=== PATIENT | female | born 1995 | race Caucasian/White ===

== ENCOUNTER 2017-04-08 09:23 | Emergency (ER) | payer BC ==
[2017-04-08 10:46] VITALS: BP 124/75
--- NOTE | 2017-04-08 11:13 | UC ---
Throat Pain/Nasal Jerald HPI - HPI Summary HPI Summary: TWO DAYS FO SORE THROAT, SINUS CONGESTION AND RUNNY NOSE. NO FEVER. - History of Current Complaint Chief Complaint: UCRespiratory Stated Complaint: THROAT Time Seen by Provider: 04/08/17 10:11 Hx Obtained From: Patient Hx Last Menstrual Period: pt has IUD and states not getting a menses Onset/Duration: Gradual Onset, Lasting Days, Still Present Severity: Moderate Cough: Nonproductive Associated Signs & Symptoms: Positive: Hoarseness, Sinus Discomfort, Nasal Discharge - Epiglottits Risk Factors Epiglottis Risk Factors: Negative - Allergies/Home Medications Allergies/Adverse Reactions: Allergies Allergy/AdvReac Type Severity Reaction Status Date / Time No Known Allergies Allergy Verified 04/08/17 10:33 Home Medications: Home Medications Iud IMPLANT DAILY 04/08/17 [History] Levothyroxine Sodium 50 mcg PO DAILY 04/08/17 [History Confirmed 04/08/17] PMH/Surg Hx/FS Hx/Imm Hx Previously Healthy: Yes Endocrine History Of: Reports: Thyroid Disease - hypo - Surgical History Surgical History: None - Family History Known Family History: Negative: Respiratory Disease - Social History Occupation: Employed Full-time Lives: With Family Alcohol Use: Occasionally Substance Use Type: None Smoking Status (MU): Never Smoked Tobacco - Immunization History Most Recent Influenza Vaccination: Not the season Review of Systems Constitutional: Negative Skin: Negative Eyes: Negative ENT: Sore Throat, Nasal Discharge Respiratory: Cough Cardiovascular: Negative Gastrointestinal: Negative Genitourinary: Negative Motor: Negative Neurovascular: Negative Musculoskeletal: Negative Neurological: Negative Psychological: Negative All Other Systems Reviewed And Are Negative: Yes Physical Exam Triage Information Reviewed: Yes Appearance: Well-Appearing, No Pain Distress, Well-Nourished Vital Signs: Initial Vital Signs Temp 97.8 F 04/08/17 10:28 Pulse 77 04/08/17 10:28 Resp 14 04/08/17 10:28 BP 124/75 04/08/17 10:28 Pulse Ox 100 04/08/17 10:28 Vital Signs Reviewed: Yes Eye Exam: Normal ENT: Positive: Hearing grossly normal, Pharyngeal erythema, Nasal congestion, TM bulging, TM dull Dental Exam: Normal Neck exam: Normal Neck: Positive: Supple, Nontender, No Lymphadenopathy Respiratory Exam: Normal Respiratory: Positive: Chest non-tender, Lungs clear, Normal breath sounds, No respiratory distress, No accessory muscle use Cardiovascular Exam: Normal Cardiovascular: Positive: RRR, No Murmur, Pulses Normal Abdominal Exam: Normal Musculoskeletal Exam: Normal Neurological Exam: Normal Psychological Exam: Normal Skin Exam: Normal Throat Pain/Nasal Course/Dx - Differential Dx/Diagnosis Differential Diagnosis/HQI/PQRI: Pharyngitis, URI Provider Diagnoses: ALLERGIC RHINITIS; PHARYNGITIS Discharge - Discharge Plan Condition: Stable Disposition: HOME Prescriptions: Fluticasone NASAL SPRAY 50MCG* [Flonase NASAL SPRAY 50MCG*] 2 spray BOTH NARES DAILY #1 btl Loratadine [Claritin 10 MG CAP] 10 mg PO DAILY #14 cap Patient Education Materials: Pharyngitis (ED), Allergic Rhinitis (ED) Referrals: Travis Keen MD [Primary Care Provider] -
== END 2017-04-08 11:13 | disposition home or self-care (01) ==
LOC: UCCORT 09:23
DX: J02.9 Acute pharyngitis, unspecified (principal); J30.9 Allergic rhinitis, unspecified; E03.9 Hypothyroidism, unspecified
CPT/HCPCS: 87651; 99212; G0463